=== PATIENT | female | born 1995 | race Caucasian/White ===

== ENCOUNTER 2025-11-30 15:47 | Outpatient (CLI) | payer BC, SELFPAY | END 2025-11-30 15:48 | disposition home or self-care (01) | PROVIDERS: PCP Family Medicine; Visit Provider Family Medicine | DX: D50.9 Iron deficiency anemia, unspecified (principal); E55.9 Vitamin D deficiency, unspecified; R53.83 Other fatigue; R73.9 Hyperglycemia, unspecified; E66.811 Obesity, class 1; Z68.35 Body mass index [BMI] 35.0-35.9, adult; Z13.6 Encounter for screening for cardiovascular disorders | CPT/HCPCS: 80053; 80061; 82306; 82607; 82728; 83540; 83550; 84443 ==